=== PATIENT | female | born 1995 | race Caucasian/White ===

== ENCOUNTER 2016-11-25 11:53 | Emergency (ER) | payer OTHER ==
--- NOTE | 2016-11-25 11:58 | ER Document Report ---
ED Medical Screen (RME) - General Chief Complaint: Fever Stated Complaint: FEVER Mode of Arrival: Ambulatory Information source: Patient Notes: Patient presents to the emergency department with complaints of fever cough congestion that started yesterday. She reports temperature of 103 last night. Patient did not take any Tylenol this morning. Patient just found out she is . Last menstrual period was in August. She denies vomiting diarrhea abdominal pain. She denies pain with void. She denies vaginal bleeding. I have greeted and performed a rapid initial assessment of this patient. A comprehensive ED assessment and evaluation of the patient, analysis of test results and completion of the medical decision making process will be conducted by additional ED providers. TRAVEL OUTSIDE OF THE [place] IN LAST 30 DAYS: No - Related Data Allergies/Adverse Reactions: Sulfa (Sulfonamide Antibiotics) Allergy (Verified 11/25/16 11:55) nuts Allergy (Uncoded 11/25/16 11:55) Past Medical History Neurological Medical History: Reports: Hx Migraine - Immunizations Immunizations up to date: Yes Hx Diphtheria, Pertussis, Tetanus Vaccination: Yes
[2016-11-25 13:46] VITALS: BP 114/64
--- NOTE | 2016-11-25 13:48 | ER Document Report ---
ED General - General Chief Complaint: Fever Stated Complaint: FEVER Mode of Arrival: Ambulatory Notes: Patient is complaining of sneezing and coughing and sore throat and general body aches starting yesterday. Had a fever this morning. No UTI symptoms and no vomiting or diarrhea. Not sure if she's had a fever. LMP August. Had 3 positive home tests last week. On no regular prescription medicines. TRAVEL OUTSIDE OF THE [place] IN LAST 30 DAYS: No - Related Data Allergies/Adverse Reactions: Sulfa (Sulfonamide Antibiotics) Allergy (Verified 11/25/16 11:55) nuts Allergy (Uncoded 11/25/16 11:55) Past Medical History - General Information source: Patient - Social History Smoking Status: Current Every Day Smoker Chew tobacco use (# tins/day): No Frequency of alcohol use: None Drug Abuse: None Family History: Reviewed & Not Pertinent Patient has suicidal ideation: No Patient has homicidal ideation: No Neurological Medical History: Reports: Hx Migraine Surgical Hx: Negative - Immunizations Immunizations up to date: Yes Hx Diphtheria, Pertussis, Tetanus Vaccination: Yes Review of Systems - Review of Systems Constitutional: denies: Chills, Diaphoresis, Fever, Recent illness Cardiovascular: denies: Chest pain Respiratory: Cough. denies: Sputum, Wheezing Gastrointestinal: denies: Diarrhea, Vomiting Skin: denies: Rash Physical Exam - Vital signs Vitals: Temp Pulse Resp BP Pulse Ox 97.8 F 93 20 110/71 100 11/25/16 11:57 11/25/16 11:57 11/25/16 11:57 11/25/16 11:57 11/25/16 11:57 Interpretation: Normal - Notes Notes: PHYSICAL EXAMINATION: GENERAL: Well-appearing, in no acute distress. Vital signs are all normal. Patient has some audible nasal congestion. HEAD: Atraumatic, normocephalic. ENT: oropharynx with mild erythema, but without exudates. Moist mucous membranes. Nasal congestion. NECK: Normal range of motion, supple. LUNGS: Breath sounds clear and equal bilaterally. HEART: Regular rate and rhythm without murmurs. ABDOMEN: Soft, nontender. No guarding or rebound. BACK: No tenderness throughout entire back. NEUROLOGICAL: Normal speech, normal gait. Normal sensory, motor, and reflex exams. Awake, alert, and oriented x3. SKIN: Warm, dry, no rashes. Course - Re-evaluation Re-evalutation: 11/25/16 13:55 Flu tests as well as rapid strep tests are all negative. Since the patient is , I only recommend that she take Tylenol for fever , aches, etc. Advised to follow-up at the health department regarding her . - Vital Signs Vital signs: Temp Pulse Resp BP Pulse Ox 98.2 F 81 18 114/64 100 11/25/16 13:45 11/25/16 13:45 11/25/16 13:45 11/25/16 13:45 11/25/16 13:45 Discharge - Discharge Clinical Impression: Viral upper respiratory infection Condition: Stable Disposition: HOME, SELF-CARE Additional Instructions: UPPER RESPIRATORY ILLNESS: You have a viral infection of the respiratory passages -- a "cold." This common infection causes nasal congestion, drainage, and often sore throat and cough. It is highly contagious. The disease usually lasts about 10 to 14 days. There is no "cure" for the viral infection -- it must run its course. If there is a complication, such as bacterial infection in the nose, sinuses, middle ear, or bronchial tubes, antibiotics may be required. The antibiotics won't affect the virus. Drink plenty of fluids. A humidifier may help. An expectorant medication or decongestant may make you more comfortable. Use acetaminophen or ibuprofen for fever or aches. See the doctor if fever persists over two days, if there is any significant worsening of your symptoms, or if you simply fail to improve as expected. USE OF ACETAMINOPHEN (Tylenol): Acetaminophen may be taken for pain relief or fever control. It's much safer than aspirin, offering a wider range of "safe" dosages. It is safe during . Some brand names are Tylenol, Panadol, Datril, Anacin 3, Tempra, and Liquiprin. Acetaminophen can be repeated every four hours. The following are maximum recommended dosages: >89 pounds or adults 650 mg to 900 mg Acetaminophen can be repeated every four hours. Maximum dose not to exceed 4000 mg a day. Tylenol is very safe to take during . SMOKING: If you smoke, you should stop smoking. The tar and chemicals in cigarette smoke are harmful. Smoking has been shown to cause: emphysema chronic bronchitis lung cancer mouth and throat cancer stomach and pancreas cancer premature aging defects In addition, smoking increases ear and lung infections in children of smokers. FOLLOW-UP CARE: If you have been referred to a physician for follow-up care, call the physician s office for an appointment as you were instructed or within the next two days. If you experience worsening or a significant change in your symptoms, notify the physician immediately or return to the Emergency Department at any time for re-evaluation.
== END 2016-11-25 13:50 | disposition home or self-care (01) ==
LOC: ER 11:53
DX: J06.9 Acute upper respiratory infection, unspecified (principal); B97.89 Other viral agents as the cause of diseases classified elsewhere; R50.9 Fever, unspecified; M79.1 Myalgia; Z88.2 Allergy status to sulfonamides; Z91.018 Allergy to other foods
CPT/HCPCS: 87070; 87804; 87880; 99283

== ENCOUNTER 2017-01-19 21:53 | Emergency (ER) | payer OTHER ==
--- NOTE | 2017-01-19 22:58 | ER Document Report ---
ED General - General Chief Complaint: OB Problem (<20wks) Stated Complaint: ABDOMINAL PAIN Notes: Patient is a 21-year-old female who presents with complaints of pain in the lower abdomen and pelvis. No vaginal bleeding or discharge. No fevers. Pain started an hour ago. No vomiting. She's had some nausea which is normal for her in her . She's approximately 12 weeks . No diarrhea. She does still smoke but is is trying to quit. This second . No complications with this thus far. TRAVEL OUTSIDE OF THE [place] IN LAST 30 DAYS: No - Related Data Allergies/Adverse Reactions: Sulfa (Sulfonamide Antibiotics) Allergy (Verified 01/19/17 22:03) nuts Allergy (Uncoded 01/19/17 22:03) Past Medical History - Social History Smoking Status: Current Every Day Smoker Frequency of alcohol use: None Drug Abuse: None Family History: Reviewed & Not Pertinent Patient has suicidal ideation: No Patient has homicidal ideation: No Neurological Medical History: Reports: Hx Migraine Renal/ Medical History: Denies: Hx Peritoneal Dialysis Surgical Hx: Negative - Immunizations Immunizations up to date: Yes Hx Diphtheria, Pertussis, Tetanus Vaccination: Yes Review of Systems - Review of Systems Notes: My Normal Review Basic REVIEW OF SYSTEMS: CONSTITUTIONAL : Denies fever, chills, or sweats. Denies recent illness. RESPIRATORY: Denies cough, cold, or chest congestion. Denies shortness of breath, difficulty breathing, or wheezing. GASTROINTESTINAL: Lower abdominal pain. Denies nausea, vomiting, or diarrhea. Denies constipation. Last BM: GENITOURINARY: Denies difficulty urinating, painful urination, burning, frequency, or blood in urine. FEMALE GENITOURINARY: Denies vaginal bleeding, abnormal or irregular periods. LMP: 12 weeks MUSCULOSKELETAL: Denies neck or back pain or joint pain or swelling. SKIN: Denies rash or skin lesions. NEUROLOGICAL: Denies altered mental status or loss of consciousness. Denies headache. Denies weakness or paralysis or loss of use of either side. Denies problems with gait or speech. Denies sensory or motor loss. ALL OTHER SYSTEMS REVIEWED AND NEGATIVE. Physical Exam - Vital signs Vitals: Temp Pulse Resp BP Pulse Ox 97.9 F 85 20 115/65 98 01/19/17 22:01 01/19/17 22:01 01/19/17 22:01 01/19/17 22:01 01/19/17 22:01 - Notes Notes: General Appearance: Well nourished, alert, cooperative, no acute distress, no obvious discomfort. Well-appearing. Vitals: reviewed, See vital signs table. Head: no swelling or tenderness to the head Eyes: PERRL, EOMI, Conjuctiva clear Mouth: No decreasd moisture Lungs: No wheezing, No rales, No rhonci, No accessory muscle use, good air exchange bilaterally. Heart: Normal rate, Regular rythm, No murmur, no rub Abdomen: Normal BS, soft, No rigidity, mild bilateral lower abdominal tenderness to palpation, No guarding, no rebound, no abdominal masses, no organomegaly Pelvic exam: Normal external genitalia. No discharge in vaginal vault. No blood in vaginal vault. Closed cervical os. Extremities: strength 5/5 in all extremities, good pulses in all extremities, no swelling or tenderness in the extremities, no edema. Skin: warm, dry, appropriate color, no rash Neuro: speech clear, oriented x 3, normal affect, responds appropriately to questions. Course - Vital Signs Vital signs: Temp Pulse Resp BP Pulse Ox 97.9 F 85 20 115/65 98 01/19/17 22:01 01/19/17 22:01 01/19/17 22:01 01/19/17 22:01 01/19/17 22:01 - Laboratory Result Diagrams: 01/19/17 22:30 01/19/17 22:30 Laboratory results interpreted by me: 01/19/17 01/19/17 22:30 22:30 WBC 11.4 H Sodium 136.8 L BUN 5 L AST 12 L Beta HCG, Quant 08082.00 H - Transfer of Care Notes: 01/20/17 00:58 Patient's wet prep did come back showing 3+ bacteria consistent with probable bacterial vaginosis. Urinalysis negative. Ultrasound is normal. She had no blood in vaginal vault. I will have her follow-up with her OB doctor next couple days. I'll have her return to ER shows fevers, increasing discharge, any bleeding, or worsening pain. Patient otherwise is well-appearing. Her exam is benign. I feel she is safe to be discharged home. Patient agrees with plan and will be discharged home. Dictation of this chart was performed using voice recognition software; therefore, there may be some unintended grammatical errors. Discharge - Discharge Clinical Impression: Abdominal pain affecting , Bacterial vaginosis Additional Instructions: Please take the antibiotics as prescribed. Please call your OB doctor to make a close follow-up appointment within the next few days for reevaluation. Please return to the ER immediately if you have fevers, severe pain, or any vaginal bleeding. Prescriptions: Metronidazole [Flagyl 500 mg Tablet] 500 mg PO Q6H #14 tablet
[2017-01-19 23:05] LABS: ABSOLUTE BASOPHILS # (AUTO) 0.1 10^3/uL (0.0-0.2); ABSOLUTE EOSINOPHILS # (AUTO) 0.3 10^3/uL (0.0-0.6); ABSOLUTE LYMPHOCYTES (AUTO) 2.7 10^3/uL (0.5-4.7); ABSOLUTE MONOCYTES (AUTO) 0.6 10^3/uL (0.1-1.4); ABSOLUTE NEUT (AUTO) 7.6 10^3/uL (1.7-8.2); BASOPHILS % (AUTO) 0.8 % (0-2); EOSINOPHILS % (AUTO) 2.9 % (0-6); HEMATOCRIT 36.6 % (36.0-47.0); HEMOGLOBIN 12.9 g/dL (12.0-15.5); HGB HCT DIFFERENCE 2.1; LYMPHOCYTES % (AUTO) 23.9 % (13-45); MEAN CORPUSCULAR HEMOGLOBIN 30.2 pg (27.0-33.4); MEAN CORPUSCULAR HGB CONC 35.1 g/dL (32.0-36.0); MEAN CORPUSCULAR VOLUME 86 fl (80-97); MONOCYTES % (AUTO) 5.3 % (3-13); RED BLOOD COUNT 4.26 10^6/uL (3.72-5.28); RED CELL DISTRIBUTION WIDTH 12.4 % (11.5-14.0); SEGMENTED NEUTROPHILS % (AUTO) 67.1 % (42-78); WHITE BLOOD COUNT 11.4 10^3/uL (4.0-10.5)
[2017-01-19 23:14] LABS: ALANINE AMINOTRANSFERASE 24 U/L (9-52); ALBUMIN 3.8 g/dL (3.5-5.0); ALKALINE PHOSPHATASE 67 U/L (38-126); ANION GAP 10 (5-19); ASPARTATE AMINO TRANSFERASE 12 U/L (14-36); BILIRUBIN,DIRECT 0.2 mg/dL (0.0-0.4); BILIRUBIN,TOTAL 0.2 mg/dL (0.2-1.3); BLOOD UREA NITROGEN 5 mg/dL (7-20); CALCIUM 9.7 mg/dL (8.4-10.2); CARBON DIOXIDE 24 mmol/L (22-30); CHLORIDE 103 mmol/L (98-107); CREATININE RESULT 0.55 mg/dL (0.52-1.25); GLUCOSE 85 mg/dL (75-110); POTASSIUM 3.7 mmol/L (3.6-5.0); SODIUM 136.8 mmol/L (137-145); TOTAL PROTEIN 6.3 g/dL (6.3-8.2)
[2017-01-19 23:25] LABS: APPEARANCE,URINE CLEAR; BILIRUBIN,URINE NEGATIVE (NEGATIVE); GLUCOSE, URINE NEGATIVE (NEGATIVE); KETONES,URINE NEGATIVE (NEGATIVE); LEUKOCYTE ESTERASE,URINE NEGATIVE (NEGATIVE); NITRITE,URINE NEGATIVE (NEGATIVE); PROTEIN,URINE NEGATIVE (NEGATIVE); URINE SPECIFIC GRAVITY 1.004; UROBILINOGEN,URINE NEGATIVE mg/dL (<2.0)
[2017-01-20 00:45] LABS: CHLAM PCR NOT DETECTED (NOT DETECT)
[2017-01-20] MEDS ORDERED: METRONIDAZOLE 500 MG TABLET PO ONE (01:06)
[2017-01-20 01:12] VITALS: BP 103/69
== END 2017-01-20 01:12 | disposition home or self-care (01) ==
LOC: ER 21:53
DX: O23.599 Infection of other part of genital tract in pregnancy, unspecified trimester (principal); B96.89 Other specified bacterial agents as the cause of diseases classified elsewhere; O26.899 Other specified pregnancy related conditions, unspecified trimester; R10.2 Pelvic and perineal pain; O99.330 Smoking (tobacco) complicating pregnancy, unspecified trimester
CPT/HCPCS: 36415; 76801; 80053; 81001; 83690; 84702; 85025; 87210; 87491; 87591; 93976; 99284